=== PATIENT | female | born 1955 | race Caucasian/White ===

== ENCOUNTER 2017-05-20 04:57 | Emergency (ER) | payer OTHER ==
[~2017-05-20] VITALS: Ht 157.5 cm; Wt 54.4 kg
[2017-05-20 05:00] VITALS: BP 145/90
--- NOTE | 2017-05-20 05:08 | NUR ---
AMBULATED TO ER BED 6
--- NOTE | 2017-05-20 05:15 | NUR ---
61/F BIB SELF, C/O 01/21 LLQ ABD PAIN X 4 DAYS, WORSE TODAY PROMPTING ER VISIT. LLQ TENDER TO TOUCH, ABD SOFT AND ROUND. DENES N/V/D, FEVER. DENIES BURNING/PAIN WHILE VOIDING. ED MADE AWARE OF PT STATUS
[2017-05-20] MEDS ORDERED: KETOROLAC 60 MG/2 ML VIAL IM ONE (05:25)
[2017-05-20 05:45] LABS: BASOPHILS # (AUTO) 0.2 K/uL (0.00-0.22); BASOPHILS % (AUTO) 1.5 % (0.0-2.0); EOSINOPHILS # (AUTO) 0.2 K/uL (0-0.4); EOSINOPHILS % (AUTO) 1.4 % (0.0-4.0); HEMATOCRIT 39.6 % (36-48); LYMPHOCYTES # (AUTO) 2.3 K/uL (2.5-16.5); MEAN CORPUSCULAR HEMOGLOBIN 29 pg (27-31); MEAN CORPUSCULAR HGB CONC 33 g/dL (33-37); MEAN CORPUSCULAR VOLUME 87 fL (80-94); MONOCYTES # (AUTO) 0.8 K/uL (0.8-1.0); MONOCYTES % (AUTO) 7.4 % (1.7-9.3); NEUTROPHILS # (AUTO) 7.5 K/uL (1.8-7.7); NEUTROPHILS % (AUTO) 68.7 % (42.2-75.2); PLATELET COUNT (AUTO) 357 K/uL (140-450); RED BLOOD CELL COUNT(AUTO) 4.54 MIL/uL (4.20-5.40); RED CELL DISTRIBUTION WIDTH 11.7 % (11.6-13.7)
[2017-05-20 05:55] LABS: ANION GAP 10.7 (8-16); CARBON DIOXIDE 30.2 mmol/L (21-32); CREATININE 0.7 mg/dL (0.6-1.3); POTASSIUM 3.9 mmol/L (3.5-5.1)
[2017-05-20 06:01] LABS: ALBUMIN 3.5 g/dL (3.4-5.0); TOTAL BILIRUBIN 0.2 mg/dL (0.0-1.0)
[2017-05-20 07:00] VITALS: BP 129/70
--- NOTE | 2017-05-20 07:00 | NUR ---
Patient discharged with v/s stable. Written and verbal after care instructions given and explained. Patient alert, oriented and verbalized understanding of instructions. Ambulatory with steady gait. All questions addressed prior to discharge. ID band removed. Patient advised to follow up with PMD. Rx of SENOKOT 8.6MG 1-2 TABS PO TWICE DAILY, MOTRIN 800MG ONE TAB PO 3 TIMES A DAY given. Patient educated on indication of medication including possible reaction and side effects. Opportunity to ask questions provided and answered.
== END 2017-05-20 07:00 | disposition home or self-care (01) ==
LOC: MED 04:57
DX: K59.00 Constipation, unspecified (principal); R03.0 Elevated blood-pressure reading, without diagnosis of hypertension
CPT/HCPCS: 36415; 74000; 76856; 80053; 81002; 81025; 85025; 96372; 99285; J1885; Q0092

== ENCOUNTER 2020-06-29 15:49 | Emergency (ER) | payer OTHER ==
[~2020-06-29] VITALS: Ht 157.5 cm; Wt 61.2 kg
[2020-06-29 16:03] VITALS: BP 130/90
--- NOTE | 2020-06-29 16:08 | NUR ---
Patient ambulated to bed 4. RN evaluating patient at bedside.
[2020-06-29] MEDS ORDERED: KETOROLAC 30 MG/ML VIAL IM ONE (16:20)
--- NOTE | 2020-06-29 16:20 | NUR ---
64 YEAR OLD FEMALE COMPLAINS OF MECHANICAL FALL X 1 HOUR AGO. PT STATES THAT SHE FELL ONTO LEFT SHOULDER, WITH SHOULDER LIMITED ROM. PT DENIES LOC, N/V/D, OR FALLING ONTO HEAD. PT AOX4, BREATHING EVEN AND UNLABORED, SKIN WARM AND DRY. BED IN LOWEST POSITION, LOCKED, BED RAIL UPX1. PMH - DENIES ALLERGIS - NKA
[2020-06-29] MEDS ORDERED: BACITRACIN OINT 500 UNITS/GM PKT TP ONE (16:50)
[2020-06-29 18:00] VITALS: BP 130/90
--- NOTE | 2020-06-29 18:00 | NUR ---
Patient discharged with v/s stable. Written and verbal after care instructions about shoulder fracture given and explained. Patient alert, oriented and verbalized understanding of instructions. Ambulatory with steady gait. All questions addressed prior to discharge. ID band removed. Patient advised to follow up with PMD. Rx of norco given. Patient educated on indication of medication including possible reaction and side effects. Opportunity to ask questions provided and answered.
== END 2020-06-29 18:00 | disposition home or self-care (01) ==
LOC: MED 15:49
DX: M25.511 Pain in right shoulder (principal); Z98.890 Other specified postprocedural states
CPT/HCPCS: 73030; 73060; 96372; 99284; J1885

== ENCOUNTER 2023-03-25 18:27 | Emergency (ER) | payer OTHER ==
[~2023-03-25] VITALS: Ht 157.5 cm; Wt 54.4 kg
[2023-03-25 18:45] VITALS: BP 147/93; PULSE 93; RESP 18; TEMP 98.1
[2023-03-25] MEDS ORDERED: ACETAMINOPHEN EXTRA STRENGTH 500 MG TAB PO ONE (19:15)
[2023-03-25 22:10] VITALS: BP 162/78; PULSE 84; RESP 18; TEMP 98.1; O2SAT 100
== END 2023-03-25 22:10 | disposition home or self-care (01) ==
LOC: MED 18:27
DX: S02.2XXA Fracture of nasal bones, initial encounter for closed fracture (principal); I10 Essential (primary) hypertension; Z88.5 Allergy status to narcotic agent; W01.0XXA Fall on same level from slipping, tripping and stumbling without subsequent striking against object, initial encounter; Y93.89 Activity, other specified; Y92.89 Other specified places as the place of occurrence of the external cause; Y99.8 Other external cause status
CPT/HCPCS: 70450; 70486; 72125; 73110; 99284